=== PATIENT | female | born 1970 | race Caucasian/White ===

== ENCOUNTER 2016-07-06 01:27 | Emergency (ER) | payer BC ==
[2016-07-06 01:41] VITALS: BP 129/85; PULSE 90; TEMP 98.5; BMI 23.9
--- NOTE | 2016-07-06 03:29 | PDOC ---
History of Present Illness - General Chief Complaint: Eye Problem Stated Complaint: LACERATION LT EYE Time Seen by Provider: 07/06/16 01:31 History Source: Patient Exam Limitations: No Limitations - History of Present Illness Occurred: reports: this evening Pain Location: reports: face Method of Injury: Yes: fall Loss of Consciousness: no loss of consciousness Associated Symptoms (Fall): denies symptoms Past History - Travel Traveled outside of the country in the last 30 days: No Close contact w/someone who was outside of country & ill: No - Past Medical History Allergies/Adverse Reactions: Allergies Allergy/AdvReac Type Severity Reaction Status Date / Time Penicillins Allergy Intermediate Rash Verified 07/06/16 01:33 Other medical history: denies - Immunization History Td Vaccination: No Immunization Up to Date: Yes - Psycho/Social/Smoking Cessation Hx Anxiety: Yes Suicidal Ideation: No Smoking History: Never smoked Number of Cigarettes Smoked Daily: 0 Cigars Per Day: 0 Information on smoking cessation initiated: No Hx Alcohol Use: No Drug/Substance Use Hx: No Trauma Specific PMHX - Complaint Specific PMHX Back Injury: No Neck Injury: No Review of Systems - Review of Systems Able to Perform ROS?: Yes Comments:: 07/06/16 03:24 CONSTITUTIONAL: Absent: fever, chills, diaphoresis, generalized weakness, malaise, loss of appetite HEENT: +pain to left periorbital rim Absent: rhinorrhea, nasal congestion, throat pain, throat swelling, difficulty swallowing, mouth swelling, ear pain, eye pain, visual Changes CARDIOVASCULAR: Absent: chest pain, loss of consciousness, palpitations, irregular heart rate, peripheral edema RESPIRATORY: Absent: cough, shortness of breath, dyspnea with exertion, orthopnea, wheezing, stridor, hemoptysis GASTROINTESTINAL: Absent: abdominal pain, abdominal distension, nausea, vomiting, diarrhea, constipation, melena, hematochezia GENITOURINARY: Absent: dysuria, frequency, urgency, hesitancy, hematuria, flank pain, genital pain MUSCULOSKELETAL: Absent: myalgia, arthralgia, joint swelling SKIN: Absent: rash, itching, pallor HEMATOLOGIC/IMMUNOLOGIC: Absent: easy bleeding, easy bruising, lymphadenopathy, frequent infections ENDOCRINE: Absent: unexplained weight gain, unexplained weight loss, heat intolerance, cold intolerance NEUROLOGIC: Absent: headache, focal weakness or paresthesias, dizziness, unsteady gait, seizure, mental status changes, bladder or bowel incontinence PSYCHIATRIC: Absent: anxiety, depression, suicidal or homicidal ideation, hallucinations. Is the patient limited Pakistani proficient: No *Physical Exam - Vital Signs Last Vital Signs Temp Pulse Resp BP Pulse Ox 98.5 F 90 20 129/85 100 07/06/16 01:34 07/06/16 01:34 07/06/16 01:34 07/06/16 01:34 07/06/16 01:34 - Physical Exam Comments: 07/06/16 03:25 GENERAL: Well developed, well nourished. Awake and alert. No acute distress. HEENT: +left periorbital swelling/ecchymosis and pain on palp to rim VA: 20/20 snellen chart ro OU/OD/OS Normocephalic, atraumatic. PERRLA, EOMI. No conjunctival pallor. Sclera are non- icteric. Moist mucous membranes. Oropharynx is clear. NECK: Supple. Full ROM. No JVD. Carotid pulses 2+ and symmetric, without bruits. No thyromegaly. No lymphadenopathy. CARDIOVASCULAR: Regular rate and rhythm. No murmurs, rubs, or gallops. Distal pulses are 2+ and symmetric. PULMONARY: No evidence of respiratory distress. Lungs clear to auscultation bilaterally. No wheezing, rales or rhonchi. ABDOMINAL: Soft. Non-tender. Non-distended. No rebound or guarding. No organomegaly. Normoactive bowel sounds. MUSCULOSKELETAL Normal range of motion at all joints. No bony deformities or tenderness. No CVA tenderness. EXTREMITIES: No cyanosis. No clubbing. No edema. No calf tenderness. SKIN: Warm and dry. Normal capillary refill. No rashes. No jaundice. NEUROLOGICAL: Alert, awake, appropriate. Cranial nerves 2-12 intact. No deficits to light touch and temperature in face, upper extremities and lower extremities. No motor deficits in the in face, upper extremities and lower extremities. Normoreflexic in the upper and lower extremities. Normal speech. Toes are down- going bilaterally. Gait is normal without ataxia. PSYCHIATRIC: Cooperative. Good eye contact. Appropriate mood and affect. Progress Note - Progress Note Progress Note: Left eyebrow: 2.5cm horizontal lac to mid region Betadine prep; aseptic concentric 1% lidocaine=1.5cc NS irrigation/copioous (4) 6.0 nylon ; simple interrupted Bacitracin Bandaid Pt refuses Orbital Ct Signed AMA 46-year-old female presents to the emergency department complaining of a laceration to the left eyebrow. Patient states she slipped and fell 9 hours ago but did not come to the emergency department because she had to attend a constitution party. Patient denies any headache, dizziness, lightheadedness, neck pain, jaw pain, chest pain, back pain, shortness of breath, abdominal pains, flank pain, extremity numbness or tingling sensation. Tetanus within 10 years. *DC/Admit/Observation/Transfer Diagnosis at time of Disposition: Laceration of eyebrow Qualifiers: Encounter type: initial encounter Laterality: left Qualified Code(s): S01.112A - Laceration without foreign body of left eyelid and periocular area, initial encounter Contusion of orbit Qualifiers: Encounter type: initial encounter Laterality: left Qualified Code(s): S05.12XA - Contusion of eyeball and orbital tissues, left eye, initial encounter - Discharge Dispostion Disposition: HOME Condition at time of disposition: Stable - Patient Instructions Printed Discharge Instructions: DI for Laceration Repair -- Simple, Contusion Additional Instructions: After a discussion regarding the pain and swelling around your left eye from your fall, you were offered a CAT scan to determine whether there is a fracture. You adamantly refused the CAT scan but agreed to return back to the emergency department for any visual disturbance, double vision, headaches, severe pain. Otherwise, please follow these instructions for your suture repair: Keep the incision clean and dry for 24 hours. After 24 hours, you may allow the soap and water to rinse off your incision. Avoid direct pressure of the water to the incision. Pat the incision dry with a clean clothe. Apply a small amount of bacitracin onto the incision. Cover the incision loosely with a bandaid. Take tylenol/motrin as needed for pain. Follow up with your physician or the ER in 48 hours for a wound check. Return to the ER if you notice red streaks, increase redness/swelling/severe pain to the incision. Suture removal in 6-7 days. Ice the area around your left eye for the swelling. 10 mins on/10 mins off for 48 hours while you're awake
[2016-07-06] MEDS ORDERED: TETANUS AND DIPHTHERIA TOXOID 0.5 ML DISP.SYRIN IM ONE (03:36)
== END 2016-07-06 03:48 | disposition home or self-care (01) ==
LOC: JER 01:27
PROC: 0HQ1XZZ Repair Face Skin, External Approach (ICD-10-PCS; principal; 2016-07-06)
DX: S01.112A Laceration without foreign body of left eyelid and periocular area, initial encounter (principal); S05.12XA Contusion of eyeball and orbital tissues, left eye, initial encounter; S00.202A Unspecified superficial injury of left eyelid and periocular area, initial encounter; W01.0XXA Fall on same level from slipping, tripping and stumbling without subsequent striking against object, initial encounter; Y93.89 Activity, other specified; Y92.89 Other specified places as the place of occurrence of the external cause; Y99.8 Other external cause status
CPT/HCPCS: 99282-25

== ENCOUNTER 2016-07-11 19:05 | Emergency (ER) | payer BC ==
[2016-07-11 19:39] VITALS: BP 132/67; PULSE 82; TEMP 98.6; BMI 185.5
--- NOTE | 2016-07-11 19:43 | PDOC ---
Suture Removal/Wound Check HPI - History of Present Illness Chief Complaint: Suture/Staple Removal(Here) Stated Complaint: SUTURE REMOVAL Time Seen by Provider: 07/11/16 19:42 History Source: Yes: Patient Exam Limitations: Yes: No Limitations Treated at: [facility] Date of Last ED visit: 07/06/16 - Previous ED Treatment Type of procedure performed on last visit: Yes: Laceration Repair Past History - Past Medical History Allergies/Adverse Reactions: Allergies Penicillins Allergy (Intermediate, Verified 07/11/16 19:37) Rash Home Medications: Ambulatory Orders NK [No Known Home Medication] 07/11/16 - Immunization History Immunizations Up to Date: Yes - Social History Smoking Status: Never smoked Number of Ciarettes Per Day: 0 Cigars Per Day: 0 Medical Decision Making - Medical Decision Making A/P: 46 y/o female here for suture removal. Pt denies fever, discharge from wound. Removed 4 sutures from patient's left eyebrow. Margins remain together. Pt instructed to keep wound clean. The patient verbalizes understanding of all instructions, has no further questions and is awaiting discharge. *DC/Admit/Observation/Transfer Diagnosis at time of Disposition: Visit for suture removal - Discharge Dispostion Disposition: HOME Condition at time of disposition: Good - Patient Instructions Printed Discharge Instructions: DI for Suture Removal
== END 2016-07-11 20:09 | disposition home or self-care (01) ==
LOC: JER 19:05 → JERFT 19:05
DX: Z48.02 Encounter for removal of sutures (principal)
CPT/HCPCS: 99281-25